=== PATIENT | female | born 1965 | race Caucasian/White ===

== ENCOUNTER 2021-01-12 20:51 | Emergency (ER) | payer BC, SELFPAY ==
[2021-01-12] VITALS (11 sets, daily range): BP systolic 102–151; BP diastolic 61–92; PULSE 70–84; RESP 12–22; TEMP 36.4–36.8; O2SAT 93–100
--- NOTE | ~2021-01-12 | XR_ITS ---
XR hip LT 2V w AP pelvis 01/12/2021 21:17 Indication: Left hip dislocation. Procedure: 3 views left hip Comparison: No prior studies for comparison. Findings: There is anterior dislocation of the femoral aspect of the left hip prosthesis. No underlyi ng fracture is identified. Surrounding soft tissues unremarkable. Impression: 1: Dislocation of left femoral aspect of total hip prosthesis. No underlying fracture identified. Reviewed, dictated and finalized at location A. Impression: 1: Dislocation of left femoral aspect of total hip prosthesis. No underlying fr acture identified.
--- NOTE | ~2021-01-12 | XR_ITS ---
EXAMINATION: XR hip LT 1V DATE: 01/12/2021 22:26 INDICATION: Left hip dislocation status post reduction. TECHNIQUE: A single view of left hip was obtained. COMPARISON: Pelvis and left hip radiographs at 9:07 PM FINDINGS: There is a total left hip arthroplasty. There is persistent anterior dislocation of the fem oral component with respect to the acetabular cup. No fracture. There is mild right hip osteoarthriti s. There is at least mild lumbar spondylosis. IMPRESSION: 1. Persistent anterior dislocation of the total left hip arthroplasty. Reviewed, dictated and finalized at location A.
--- NOTE | 2021-01-12 21:29 | ED.LOWEXIN ---
HPI - Extremity Injury (Lower) General Chief Complaint: Extremity Injury, Lower Stated Complaint: left hip pain Time Seen by Provider: 01/12/21 20:59 History of Present Illness HPI Narrative: Patient is a 55-year-old female who presents ER with concerns for left hip dislocation. Patient has history of recurrent hip dislocation and has had a hip replacement surgery as well as a hip revision. These surgeries occurred in [place] and the last surgery was in January 2020. Patient was standing in shifting weight when she felt a sudden pop and fell to the ground. She has pain in her left hip going into the inguinal region. No numbness or tingling to lower extremity. Denies striking her head or losing consciousness. No additional concerns. Related Data Allergies Allergy/AdvReac Type Severity Reaction Status Date / Time Sulfa (Sulfonamide Allergy Mild RASH Verified 09/13/10 16:26 Antibiotics) Review of Systems Review of Systems: All systems reviewed & are unremarkable except as noted in HPI and below Musculoskeletal: Musculoskeletal: Denies back pain, Reports arthralgias and Reports muscle cramps Neurologic: Denies syncope, Denies focal weakness and Denies numbness PMFSH Past Medical History Medical History (Updated 01/12/21 @ 23:29 by Sriram Argueta MD) Antiphospholipid antibody syndrome Surgical History Surgical History (Updated 01/12/21 @ 21:44 by Sriram Argueta MD) History of hip replacement Social History Social History (Updated 01/12/21 @ 23:26 by Sriram Argutea MD) Alcohol use details: Rare Exam Narrative: Exam Narrative: GENERAL: Well-appearing, well-nourished, and in no acute distress. HEAD: Normocephalic, atraumatic. CHEST: Clear to auscultation. No respiratory distress. HEART: Regular rate and rhythm. Normal peripheral pulses. EXTREMITIES: Focused exam left lower extremity reveals a patient with her leg fully extended. She is able to perform forward flexion/extension at the knee/ankle/hip when fully sedated. When awake she will not range her left hip due to pain seen with her knee. She has normal range of motion in the ankle and toes. Sharp touch intact. Normal dorsalis pedis and posterior tibial pulses. A lump can be felt over the left inguinal canal representing patient's dislocated prosthetic femoral head. SKIN: Warm, dry, no rash. NEURO: No focal deficits. Alert and oriented x3. PSYCH: Normal mood and affect. Course Course Emergency Course: Consulted patient for conscious sedation. Patient reports she last had food/drink at 8 PM when she had a beer. Family is asked me to contact Dr. Garcia her orthopedic surgeon. I contacted him [phone] and it went to voicemail. I did leave a message. He did return the call and report should closed reduction fail patient should be transferred to tertiary care center. Patient has had a previous surgery in the past by Dr. Young at [facility] and would recommend going there. Currently patient has had multiple complex procedures due to failure of hardware. Reevaluation(s) Reevaluation #1: Unsuccessful attempted closed reduction. I have contacted [facility] and spoke with Dr. Pavon with orthopedic surgery who is excepted the patient. Dr. Cruz is the ER physician who is excepted the patient. Patient will be kept n.p.o. in case there is a planned procedure tonight or further attempted closed reduction. Patient has been aware of treatment plan. Date: 01/12/21 Time: 23:05 Vital Signs Vital signs: Vital Signs Temperature 98 F 01/12/21 20:51 Pulse Rate 71 01/12/21 20:51 Respiratory Rate 16 01/12/21 20:51 Blood Pressure 151/82 H 01/12/21 20:51 Pulse Oximetry 98 01/12/21 20:51 Temperature 98.2 F 01/12/21 22:25 Pulse Rate 70 01/12/21 22:25 Respiratory Rate 12 01/12/21 22:25 Blood Pressure 136/68 01/12/21 22:25 Pulse Oximetry 100 01/12/21 22:25 Procedures Orthopedic Joint Reduction Joint #1: Orthopedic Join
[2021-01-12] MEDS: SODIUM CHLORIDE 0.9% IV 1,000 ML 999 ML IV CONT (22:08)
[2021-01-12] MEDS: MORPHINE SULFATE (*CRX) 4 MG/ML INJ IV PUSH (22:08)
[2021-01-12] MEDS: PROPOFOL IV EMULSION 200 MG/20 ML VIAL 100 MG IV PUSH (22:11)
[2021-01-12] MEDS: MORPHINE SULFATE (*CRX) 4 MG/ML INJ (22:47)
--- NOTE | 2021-01-12 23:27 | PC.NURSE ---
called [facility] to request transport. declined due to short staff
--- NOTE | 2021-01-12 23:33 | PC.NURSE ---
called [facility] to request transport. ETA 1 hour.
--- NOTE | 2021-01-12 23:35 | PC.NURSE ---
4mg morphine @ 2208 1L NS started at 8 100mg propofol given at 2210 40mg propofol given at 2213
[2021-01-13 00:10] VITALS: BP 109/72; PULSE 82; RESP 17; O2SAT 98
== END 2021-01-13 00:13 | disposition short-term general hospital (02) ==
PROVIDERS: Emergency Provider Emergency Medicine
DX: T84.021A Dislocation of internal left hip prosthesis, initial encounter (principal); D68.61 Antiphospholipid syndrome
CPT/HCPCS: 27252; 27265; 27266; 73501; 73502; 96361; 96374; 96376; 99285; J2270; J2704; J7030